=== PATIENT | female | born 1960 | race Two or more races ===

== ENCOUNTER → 2020-02-15 10:33 | Outpatient (BNVA) | payer MEDICAID, SELFPAY | PROVIDERS: PCP Internal Medicine; Referring Provider Internal Medicine; Visit Provider Internal Medicine Endocrinology, Diabetes & Metabolism | DX: Z76.89 Persons encountering health services in other specified circumstances (principal) ==

== ENCOUNTER 2020-02-16 10:11 | Outpatient (REF) | payer MEDICAID, SELFPAY ==
[2020-02-16 11:39] LABS: Free T4 (Free Thyroxine) 0.92 ng/dL (0.71-1.85); Thyroid Stimulating Hormone 1.07 uIU/mL (0.32-4.0)
[2020-02-18 19:09] LABS: Triiodothyronine T3 Total 118 ng/dL (76-181)
== END 2020-02-16 10:12 | disposition home or self-care (01) ==
LOC: HO.LAB 10:11
PROVIDERS: PCP Internal Medicine; Visit Provider Internal Medicine Endocrinology, Diabetes & Metabolism
DX: E55.9 Vitamin D deficiency, unspecified (principal); E05.00 Thyrotoxicosis with diffuse goiter without thyrotoxic crisis or storm
CPT/HCPCS: 84439; 84443; 84480

== ENCOUNTER 2020-07-26 08:01 | Outpatient (REF) | payer MEDICAID, SELFPAY ==
[2020-07-26 09:46] LABS: Free T4 (Free Thyroxine) 0.89 ng/dL (0.71-1.85); Thyroid Stimulating Hormone 1.86 uIU/mL (0.32-4.0)
[2020-07-27 07:16] LABS: Triiodothyronine T3 Total 150 ng/dL (76-181)
== END 2020-07-26 08:02 | disposition home or self-care (01) ==
LOC: HO.LAB 08:01
PROVIDERS: PCP Internal Medicine; Visit Provider Internal Medicine Endocrinology, Diabetes & Metabolism
DX: E05.00 Thyrotoxicosis with diffuse goiter without thyrotoxic crisis or storm (principal); E55.9 Vitamin D deficiency, unspecified
CPT/HCPCS: 36415; 84439; 84443; 84480

== ENCOUNTER → 2020-08-15 14:05 | Outpatient (BNVA) | payer MEDICAID, SELFPAY | PROVIDERS: PCP Internal Medicine; Visit Provider Internal Medicine Endocrinology, Diabetes & Metabolism | DX: E05.00 Thyrotoxicosis with diffuse goiter without thyrotoxic crisis or storm (principal); E55.9 Vitamin D deficiency, unspecified | CPT/HCPCS: 99212 ==

== ENCOUNTER → 2020-08-19 08:33 | Outpatient (REF) | payer MEDICAID, SELFPAY | LOC: HO.SL 08:33 | PROVIDERS: PCP Internal Medicine; Visit Provider Internal Medicine | DX: G47.33 Obstructive sleep apnea (adult) (pediatric) (principal); R06.83 Snoring | CPT/HCPCS: 95806 ==

== ENCOUNTER 2020-08-20 13:48 | Outpatient (REF) | payer MEDICAID, SELFPAY ==
--- NOTE | ~2020-08-20 | MM_ITS ---
EXAMINATION: MM SCREENING DIGITAL BREAST TOMOSYNTHESIS, BILATERAL CLINICAL INFORMATION: Screening. Asymptomatic. The lifetime risk of breast cancer based on the Tyrer-Cuzick Model is 8.9%. COMPARISON: Mammography: April 30, 2019 and studies dating back to June 02, 2011 TECHNIQUE: Digital breast tomosynthesis is performed in both the craniocaudal and mediolateral oblique views along with computer-aided detection (CAD). Synthesized 2D images are generated from the tomosynthesis. FINDINGS: The breasts are almost entirely fatty (ACR BI-RADS breast composition Category a). There are no significant masses, abnormal calcifications, or other abnormalities. MM/MM tomosynthesis screening BI IMPRESSION: There are no significant changes from prior study. ASSESSMENT: BI-RADS 1: Negative RECOMMENDATION: Routine annual mammography screening. This patient's information was entered into a reminder system with a target due date for their next mammogram.
== END 2020-08-20 13:49 | disposition home or self-care (01) ==
LOC: HO.MAMMO 13:48
PROVIDERS: PCP Internal Medicine; Visit Provider Internal Medicine
DX: Z12.31 Encounter for screening mammogram for malignant neoplasm of breast (principal)
CPT/HCPCS: 77063; 77067

== ENCOUNTER 2020-11-28 03:26 | Emergency (ER) | payer MEDICAID, SELFPAY ==
--- NOTE | ~2020-11-28 | XR_ITS ---
EXAMINATION: XR HIP, LEFT WITH PELVIS CLINICAL INFORMATION: Pain, question atraumatic COMPARISON: None TECHNIQUE: Two views of the left hip. AP pelvis. FINDINGS: Alignment across the hips is anatomic, and joint spaces are maintained. No acute fracture is seen. Sacroiliac joints and pubic symphysis are intact. XR/XR hip LT w PEL1V IMPRESSION: No acute findings.
[2020-11-28 03:39] VITALS: BP 129/68; BP 134/86; PULSE 119; PULSE 132; RESP 20; TEMP 37.3; O2SAT 95; O2SAT 97; BMI 28.9
[2020-11-28 04:02] LABS: Glucose Urine UA NEG (NEG); Leukocyte Esterase Urine NEG (NEG); Nitrite Urine NEG (NEG); Specific Gravity - Urine <= 1.005 (1.005-1.025); Urine Blood NEG (NEG); Urine Ketones NEG (NEG); Urine Protein NEG (NEG-TRACE)
--- NOTE | 2020-11-28 04:02 | ECG_ITS ---
Test Reason : ABD PAIN Blood Pressure : / mmHG Vent. Rate : 115 BPM Atrial Rate : 115 BPM P-R Int : 130 ms QRS Dur : 064 ms QT Int : 336 ms P-R-T Axes : 048 009 007 degrees QTc Int : 464 ms Sinus tachycardia Otherwise normal ECG When compared with ECG of 27-JUN-2011 23:40, No significant change was found Referred By: Kristen Robison Electronically Signed By:ALAINA ISAACS
[2020-11-28 04:05] LABS: Appearance Urine CLEAR; Color Urine STRAW
--- NOTE | 2020-11-28 04:25 | ED_ITS ---
HPI - General Adult General Chief complaint: General Medical Stated complaint: L LEG PAIN W/DIFF AMB,NO INJURY SINCE YESTERDAY Time Seen by Provider: 11/28/20 03:36 Source: patient and school manager Mode of arrival: EMS History of Present Illness HPI narrative: 60-year-old female with multiple medical comorbidities who presents via EMS for significant pain at her inner left thigh that is atraumatic. Patient otherwise denies any fever but states she is having some chills and otherwise denies any shortness of breath, chest pain/palpitations, GI or symptoms. She states that she began experiencing pain at approximately 5:00 p.m. last night and initially tried to use a cane to assist her in walking but then the pain became progressively worse. She has received both COVID-19 vaccines. Additional information patient states that she ?over did it yesterday? with housework. Related Data Home Medications Medication Instructions Recorded Confirmed adalimumab 40 mg/0.8 mL 40 mg SUBCUT Q2W 02/15/20 08/15/20 subcutaneous syringe kit (Humira) cetirizine 10 mg capsule (All Day 10 mg PO DAILY 02/15/20 08/15/20 Allergy (cetirizine)) clonazepam 0.5 mg tablet 0.5 mg PO DAILY 02/15/20 08/15/20 docusate sodium 100 mg capsule 100 mg PO DAILY 02/15/20 08/15/20 (Colace) fluticasone prop.50 mcg spray INTRANASAL DAILY ea 02/15/20 08/15/20 spray,suspen-sod.chloride 0.9% nasal spray kit metformin 500 mg tablet 500 mg PO DAILY 02/15/20 08/15/20 methotrexate sodium 2.5 mg tablet 2.5 mg PO QWEEK 02/15/20 08/15/20 metoprolol tartrate 25 mg tablet 12.5 mg PO BID 02/15/20 08/15/20 sertraline 100 mg tablet 100 mg PO DAILY 02/15/20 08/15/20 clindamycin HCl 300 mg capsule 300 mg PO BID 08/15/20 08/15/20 Previous Rx's Medication Instructions Recorded cholecalciferol (vitamin D3) 25 25 mcg PO DAILY 30 Days #30 cap 08/15/20 mcg (1,000 unit) capsule methimazole 5 mg tablet 2.5 mg PO .3 times a week 30 Days 08/15/20 #14 tab Allergies Allergy/AdvReac Type Severity Reaction Status Date / Time No Known Allergies Allergy Unverified 12/20/19 17:35 Review of Systems Review of Systems: Pertinent positives and negatives as stated in HPI 10 point review of systems is otherwise negative. FORMERLY [facility] Past Medical History Source: nursing notes reviewed Medical History Anxiety Graves disease Rheumatoid arthritis Vitamin D deficiency Surgical History No pertinent past surgical history Family History Family History Father Diabetes Hypertension Heart disease Hyperlipidemia Thyroid disease Mother Heart disease Hypertension Thyroid disease Diabetes Social History Social History Alcohol intake: unknown Patient Tobacco Use Status: Never used Tobacco Use of substances other than those prescribed or required for medical reasons: No Advance Directives: No Advance Directives Information Provided: Yes Patient : No Physical Exam Vital Signs: Vital Signs: Last Vital Signs Temp 99.1 F 11/28/20 03:39 Pulse 108 H 11/28/20 04:38 Resp 18 11/28/20 04:38 BP 133/76 11/28/20 04:38 Pulse Ox 97 11/28/20 04:38 Body Mass Index 28.9 VITAL SIGNS: Reviewed. GENERAL: Well developed, well nourished, in no acute distress. HEAD: Normocephalic/atraumatic EYES: PERRLA, EOMI EARS: Ext canals without abnormality, TMs non-bulging and non-erythematous NOSE: Nares patent bilateral OROPHARYNX: no oral lesions noted, posterior pharynx clear NECK: Supple, no adenopathy LUNGS: Normal breath sounds. No adventitious sounds or accessory muscle use. SpO2<95> CARDIOVASCULAR: Regular rate and rhythm without noted murmurs, no JVD or lower extremity edema. ABDOMEN: Soft, non-tender, non-distended with bowel sounds. LEFT LOWER EXTREMITY: No deformity noted, no erythema/induration, full range of motion at ankle, foot is warm, palpable DP/PT with good capillary refill and sensation is intact. However on attempts to range of motion the knee which then moves the hip patient experiences significant pain SKIN: Inspection of the skin reveals no rashes NEUROLOGIC: Alert and oriented x 4. Strength and sensation to light touch were grossly intact x 4. Course Course Course Narrative: 60-year-old female with history and clinical presentation concerning for possible fracture. Basic labs, imaging, urinalysis. Review of all investigations without acute findings and on re-evaluation patient has some improvement with ambulation and ambulates with a cane at baseline. With the dial refinisher and nursing staff patient was ambulated and she states feeling somewhat better and endorses that she will take it easy for the day. Medical Decision Making Lab Data Result diagrams: 11/28/20 04:33 11/28/20 04:33 Labs: Lab Results 11/28/20 11/28/20 11/28/20 Range/Units 03:55 04:33 04:33 WBC 9.6 (4.8-10.8) X10*3/uL RBC 4.56 (4.20-5.50) X10*6/uL Hgb 10.9 L (12.0-16.0) g/dl Hct 34.8 L (37-47) % MCV 76.3 L (80-98) fL MCH 23.9 L (27.0-33.0) pg MCHC 31.3 (31.0-35.0) g/dl RDW 16.2 H (11.0-16.0) % Plt Count 214 (160-400) X10*3/uL MPV 9.2 L (9.4-12.3) fL Immature Gran % (Auto) 0.3 (0.0-0.4) % Neut % (Auto) 75.5 H (45-73) % Lymph % (Auto) 13.9 L (20-40) % [place] % (Auto) 10.2 (2-11) % Eos % (Auto) 0.0 (0-4) % Baso % (Auto) 0.1 (0-2) % Lymph # (Auto) 1.3 (1.2-4.9) X10*3/uL [place] # (Auto) 1.0 (0.1-1.2) X10*3/uL Eos # (Auto) 0.0 (0.0-0.4) X10*3/uL Baso # (Auto) 0.0 (0.0-0.2) X10*3/uL Abs Immat Gran (auto) 0.03 (0.00-0.03) X10*3/uL Absolute Neuts (auto) 7.2 (2.0-8.3) X10*3/uL Absolute Nucleated RBC 0.000 (0.0-0.012) X10*3/uL Nucleated RBC % (auto) 0.0 (0.0-0.2) /100WBC Sodium 136 (135-145) mmol/L Potassium 4.2 (3.3-5.1) mmol/L Chloride 102 (96-108) mmol/L Carbon Dioxide 25 (22-29) mmol/L Anion Gap 13 (12-20) BUN 19 H (9-16) mg/dL Creatinine 0.85 (0.5-1.4) mg/dL Estim Creat Clear Calc 45.8 Estimated GFR > 60 Random Glucose 148 H (60-115) mg/dL Calcium 8.8 (8.4-10.2) mg/dL Total Bilirubin 1.0 (0.0-1.0) mg/dL AST 26 (5-31) U/L ALT 25 (0-31) U/L Alkaline Phosphatase 59 (39-117) U/L Total Protein 8.1 H (6.5-8.0) g/dL Albumin 4.0 (3.5-5.0) g/dL Urine Color STRAW Urine Appearance CLEAR Urine pH 6.0 (5.0-8.0) Ur Specific [place] <= 1.005 (1.005-1.025) Urine Protein NEG (NEG-TRACE) MG/DL Urine Glucose (UA) NEG (NEG) MG/DL Urine Ketones NEG (NEG) MG/DL Urine Blood NEG (NEG) Urine Nitrite NEG (NEG) Ur Leukocyte Esterase NEG (NEG) ECG Data Attestation: I personally reviewed and interpreted this ECG as follows: Prior ECG tracings: not available for review Interpretation: Sinus tachycardia, HR -115, no STEMI, RI/QRS/QTC are within normal limits. Discharge Plan Discharge Clinical Impression: Arthritis Patient Disposition: Home, Self-Care Instructions: Musculoskeletal Pain (ED), Arthritis (ED) Additional Instructions: 1. Reanude todos los medicamentos caseros seg?n lo prescrito. 2. Recomiende que froilan un seguimiento con vyas proveedor de atenci?n primaria llamando al consultorio por la ma?meaghan para shelby reevaluaci?n y un tratamiento ambulatorio adicional. Regrese a la david de emergencias si [place] s?ntomas empeoran de manera aguda. Prescriptions: No Action fluticasone prp-sod.chl,bicarb 50 mcg- 0.9 % kit,spray suspension and spray intranasal DAILY RF: 0 clonazepam 0.5 mg tablet 0.5 mg PO DAILY RF: 0 metoprolol tartrate 25 mg tablet 12.5 mg PO BID RF: 0 All Day Allergy (cetirizine) 10 mg capsule 10 mg PO DAILY RF: 0 metformin 500 mg tablet 500 mg PO DAILY RF: 0 sertraline 100 mg tablet 100 mg PO DAILY RF: 0 docusate sodium [Colace] 100 mg capsule 100 mg PO DAILY RF: 0 methotrexate sodium 2.5 mg tablet 2.5 mg PO QWEEK RF: 0 Humira 40 mg/0.8 mL syringe kit 40 mg subcut Q2W RF: 0 clindamycin HCl 300 mg capsule 300 mg PO BID RF: 0 cholecalciferol (vitamin D3) 25 mcg (1,000 unit) capsule 25 mcg PO DAILY 30 Days Qty: 30 RF: 6 methimazole 5 mg tablet 2.5 mg PO .3 times a week 30 Days Qty: 14 RF: 6 Referrals: [facility] [Primary Care Provider] - 2 days Print Language: Latvian
[2020-11-28 04:38] VITALS: BP 133/76; PULSE 108; RESP 18; O2SAT 97
[2020-11-28 04:38] LABS: MANUAL DIFF FLAG NO
[2020-11-28 04:39] LABS: Basophils Percent Auto 0.1 % (0-2); Hematocrit 34.8 % (37-47); Hemoglobin 10.9 g/dl (12.0-16.0); Imm Gran Abs Auto 0.03 X10*3/uL (0.00-0.03); Imm Gran Pct Auto 0.3 % (0.0-0.4); Lymphocytes Absolute Auto 1.3 X10*3/uL (1.2-4.9); Lymphocytes Percent Auto 13.9 % (20-40); Mean Corpuscular HGB Conc 31.3 g/dl (31.0-35.0); Mean Corpuscular Hemoglobin 23.9 pg (27.0-33.0); Mean Corpuscular Volume 76.3 fL (80-98); Mean Platelet Volume 9.2 fL (9.4-12.3); Monocytes Percent Auto 10.2 % (2-11); Neutrophils Absolute Auto 7.2 X10*3/uL (2.0-8.3); Neutrophils Percent Auto 75.5 % (45-73); Platelet Count 214 X10*3/uL (160-400); Red Blood Count 4.56 X10*6/uL (4.20-5.50); Red Cell Distribution Width 16.2 % (11.0-16.0); White Blood Count 9.6 X10*3/uL (4.8-10.8)
[2020-11-28 05:15] LABS: Alanine Aminotransferase 25 U/L (0-31); Alkaline Phosphatase 59 U/L (39-117); Anion Gap 13 (12-20); Aspartate Amino Transferase 26 U/L (5-31); Blood Urea Nitrogen 19 mg/dL (9-16); Calcium 8.8 mg/dL (8.4-10.2); Carbon Dioxide 25 mmol/L (22-29); Chloride 102 mmol/L (96-108); Creatinine Clr Calc Pharmacy 45.8; Estimated Glomerular Filt Rate > 60; Glucose Random 148 mg/dL (60-115); Potassium 4.2 mmol/L (3.3-5.1); Sodium 136 mmol/L (135-145); Total Protein 8.1 g/dL (6.5-8.0)
--- NOTE | 2020-11-28 05:52 | PC.NURSE ---
Pt taken to xray. Gave update to .
== END 2020-11-28 07:42 | disposition home or self-care (01) ==
PROVIDERS: Emergency Provider Student in an Organized Health Care Education/Training Program
DX: M16.12 Unilateral primary osteoarthritis, left hip (principal); M79.605 Pain in left leg; R00.0 Tachycardia, unspecified
CPT/HCPCS: 36415; 73502; 80053; 81003; 85025; 93005; 93971; 99283; 99284

== ENCOUNTER 2020-11-28 14:41 | Outpatient (REF) | payer MEDICAID, SELFPAY ==
--- NOTE | ~2020-11-28 | US_ITS ---
EXAMINATION: US VENOUS ULTRASOUND WITH DOPPLER LOWER EXTREMITY, LEFT CLINICAL INFORMATION: Edema and left lower extremity. Assess for occult DVT. COMPARISON: None TECHNIQUE: Ultrasound of the deep veins is performed from the hip to the calf with compression sonography and color and pulse Doppler assessment. Spectral analysis with color-flow imaging is performed. FINDINGS: There is normal venous compression and respiratory variation and augmented flow. The visualized common femoral vein, superficial femoral vein, profunda femoral vein, popliteal vein, and the trifurcation region shows no evidence of deep venous thrombosis. No visible popliteal fossa cyst. US/US venous duplex LE LT IMPRESSION: No DVT demonstrated in the left lower extremity.
== END 2020-11-28 14:42 | disposition home or self-care (01) ==
LOC: HO.US 14:41
PROVIDERS: PCP Internal Medicine; Visit Provider Internal Medicine
DX: R10.32 Left lower quadrant pain (principal); R60.0 Localized edema
CPT/HCPCS: 93971

== ENCOUNTER → 2021-01-11 20:04 | Outpatient (REF) | payer MEDICAID, SELFPAY | LOC: HO.SL 20:04 | PROVIDERS: PCP Internal Medicine; Visit Provider Internal Medicine | DX: G47.33 Obstructive sleep apnea (adult) (pediatric) (principal) | CPT/HCPCS: 95811 ==

== ENCOUNTER 2021-01-26 14:36 | Outpatient (REF) | payer MEDICAID, SELFPAY ==
--- NOTE | 2021-01-26 16:36 | MHC.AU.ANH ---
Adult Audiological Evaluation Date of Visit: 01/26/21 Building Service Worker Used: Palauan- In Person Reason for Appointment: Audiological evaluation due to history of hearing loss and hearing aid use. Patient reports she was previously a patient of [facility]. She notes a longstanding history of hearing loss, with her right ear hearing worse than the left. She uses Oticon BTE hearing aids in both ears, and notes that she hasn't been hearing as well with them lately. Previous Hearing Test Results: Previously tested at [facility]. Records not available for review today. Ear History: Recent Ear Infections: Often gets infections when she is congested Bothersome Tinnitus/Ringing/Noises in Ears: Both Ears Medical History: Medical History: Rheumatoid arthritis, cutaneous lupus, Graves' disease Medication List: Humira 40 mg, Metoprolol Tartrate 25 mg, Cetirizine HCl 10 mg, Methimazole 5 mg, Methotrexate 2.5 mg, Vitamin D3 25 mg, Folic acid 1 mg, Fluticasone Prop 50 mg, Hydroxyzine HCl 10 mg, Citalopram 10 mg, Freestyle 28 g, Meloxicam 7.5 mg, Caltrate 600 + D3 Hearing Instrument History- Right Ear: Big Data Solutions Architect: Oticon Model: Bela 2 Pro PP Serial Number: [id number] Battery Size: 13 Repair Warranty: 05/02/2018 Loss and Damage Warranty: 05/02/2017 Dispensed By: [facility] Date of Fitting: Per Oticon: Purchased 04/02/2016 Hearing Instrument History- Left Ear: Big Data Solutions Architect: Oticon Model: Bela 2 Pro Serial Number: [id number] Battery Size: 13 Warranty: 05/02/2018 Loss and Damage Warranty: 05/02/2017 Dispensed By: [facility] Date of Fitting: Per Oticon: Purchased 04/02/2016 Otoscopy: Right Ear: Significant scarring on the tympanic membrane. Clear canal. Left Ear: Significant scarring on the tympanic membrane. Clear canal. Tympanometry: Tympanometry performed due to: To assess integrity of the middle ear system Right Ear: Non-compliant Middle Ear System (Type B) Left Ear: Non-compliant Middle Ear System (Type B) Hearing Evaluation: Transducer(s) Used: Insert Earphones, Bone Conduction Method: Conventional Audiometry Stimuli Used: Pure Tones Right Ear: Description of Hearing: Severe mixed hearing loss from 250-1000 Hz, severe sensorineural hearing loss at 2000 Hz, and a severe mixed hearing loss from 9548-3639 Hz. Left Ear: Description of Hearing: Mild sensorineural hearing loss from 250-4000 Hz and a moderate hearing loss at 8000 Hz. Speech Recognition Threshold (SRT): Method Used: Recorded Lists Stimuli Used: [place]an Trisyllable Words Right Ear: 90 dBHL Left Ear: 40 dBHL Word Discrimination: Method: Recorded Lists Word Lists Used: Lista Bisil?bica (Palauan) Right Ear: 64% at 100 dBHL (masked) Left Ear: 100% at 80 dBHL Recommendations: Audiological re-evaluation in one year. Hearing aid maintenance performed today. Hearing aid(s) reprogrammed with updated test results. Patient will be due for new hearing aids in early 2021. Recommend she return in May 2021 for a hearing aid consultation. Diagnosis: Primary Diagnosis: H90.3 Bilateral Sensorineural Hearing Loss Secondary Diagnosis: H69.93 Unspecified Eustachian Tube Dysfunction, Bilateral Services Performed: Comprehensive Audiological Evaluation (CPT 30788) Tympanometry (CPT 46940) Signature: Provider: Erasmo Jones, CCC-A
--- NOTE | 2021-01-26 16:41 | MHC.AU.HFU ---
Hearing Instrument Follow-Up- Binaural Date of Visit: 01/26/21 Chemist Internship Used: Slovenian- In Person Right Ear: Leader Writer: Oticon Model: Bela 2 Pro PP Serial Number: [id number] Repair Warranty: 05/02/2018 Loss and Damage Warranty: 05/02/2017 Battery Size: 13 Color: Silver El TubinT Type of Mold: Skeleton mold Dispensed By: [facility] Date of Fitting: Per Oticon- Purchased 04/02/2016 Left Ear: Leader Writer: Oticon Model: Bela 2 Pro Serial Number: [id number] Repair Warranty: 05/02/2018 Loss and Damage Warranty: 05/02/2017 Battery Size: 13 Color: Silver El TubinT Type of Mold: Canal lock mold Dispensed By: [facility] Date of Fitting: Per Oticon- Purchased 04/02/2016 Follow-Up Summary: Hearing aid maintenance performed. Cleaned aids and earmolds, vacuumed microphones, replaced tubing. Saved hearing aid settings in SHARLA then reprogrammed to today's audiogram and set to adaptation level 3. She reported improved sound quality. Recommendations: Recommendations: Hearing instrument maintenance in 6 months, or sooner if needed. Please contact our clinic with any questions or concerns. Signature: Provider: Erasmo Jones, CCC-A
--- NOTE | 2021-01-27 11:17 | MHC.AU.MED ---
Medical Clearance for Hearing Instrumentation Date: 01/27/21 Patient Name: Winsome Cobos Date of : 1960 Referring Provider: Myriam Moore MD We have seen your patient on 01/27/21 and have determined that they are a candidate for amplification (See accompanying report). Specifically, they would benefit from: Hearing aid use in both ears There is a statute that addresses Medical Evaluation Requirements prior to fitting a patient with a hearing aid. According to [place] statute 265 CMR:6.03(1), (a) General. Except as provided in 265 CMR 6.03(1)(b), a shearing machine operator shall not sell a hearing aid unless the prospective user has presented to the shearing machine operator a written statement signed by a licensed physician that states that the patient's hearing loss has been medically evaluated and the patient may be considered a candidate for a hearing aid. The medical evaluation must have taken place within the preceding six months. Please note: Due to the [place] Statute referenced above, we cannot accept a signature other than that of a licensed physician. FIELD ENGINEER and PA signatures cannot be accepted. I am in agreement with the above recommendation. There is no medical contraindication for hearing instrumentation. Physician Signature Date Physician Name (Printed)
== END 2021-01-26 14:37 | disposition home or self-care (01) ==
LOC: HO.SH 14:36
PROVIDERS: Visit Provider Internal Medicine
DX: Z46.1 Encounter for fitting and adjustment of hearing aid (principal); H90.3 Sensorineural hearing loss, bilateral; H69.93 Unspecified Eustachian tube disorder, bilateral
CPT/HCPCS: 92557; 92567; 92593; V5011

== ENCOUNTER 2021-02-18 13:45 | Outpatient (REF) | payer MEDICAID, SELFPAY ==
[2021-02-18 16:28] LABS: Thyroid Stimulating Hormone 1.14 uIU/mL (0.32-4.0)
[2021-02-18 16:29] LABS: Thyroid Stimulating Hormone 1.14 uIU/mL (0.32-4.0); Vitamin D 25-OH Total 35.6 ng/mL (>30)
[2021-02-20 17:47] LABS: Thyroglobulin Antibodies <1 IU/mL (< or = 1)
[2021-02-20 20:10] LABS: Triiodothyronine T3 Total 121 ng/dL (76-181)
[2021-02-20 21:26] LABS: Thyroid Peroxidase Antibodies 1 IU/mL (<9)
[2021-02-23 21:37] LABS: Thyrotropin Receptor Antibody 1.52 IU/L (<=2.00)
[2021-02-25 15:41] LABS: Thyroid Stimulating Immunoglob <89 % baseline (<140)
== END 2021-02-18 13:46 | disposition home or self-care (01) ==
LOC: HO.LAB 13:45
PROVIDERS: Internal Medicine Endocrinology, Diabetes & Metabolism; PCP Internal Medicine; Visit Provider Internal Medicine
DX: E05.00 Thyrotoxicosis with diffuse goiter without thyrotoxic crisis or storm (principal); E55.9 Vitamin D deficiency, unspecified
CPT/HCPCS: 36415; 82306; 83520; 84439; 84443; 84445; 84480; 86376; 86800; 99212

== ENCOUNTER → 2021-05-13 09:16 | Outpatient (BNVA) | payer MEDICAID, SELFPAY | PROVIDERS: PCP Internal Medicine; Visit Provider Internal Medicine ==

== ENCOUNTER 2021-07-06 14:15 | Outpatient (REF) | payer MEDICAID, SELFPAY ==
--- NOTE | ~2021-07-06 | US_ITS ---
EXAMINATION: US THYROID CLINICAL INFORMATION: Thyrotoxicosis with diffuse goiter COMPARISON: None TECHNIQUE: Linear transducer grayscale and color Doppler examination with attention to the region of the thyroid. FINDINGS: SIZE: Measurements of the thyroid lobes and nodules are given in sagittal, anteroposterior and transverse dimensions respectively. Right Thyroid Lobe: 3.4 x 1.2 x 1.0 cm, volume 1.92 mL. Parenchyma: The gland echotexture is homogeneous. Thyroid vascularity is normal. Left Thyroid Lobe: 2.7 x 1.2 x 1.2 cm, volume 2.0 mL. Parenchyma: The gland echotexture is homogeneous. Thyroid vascularity is normal. Isthmus: 0.3 cm in maximum AP dimension. Estimated total number of nodules greater than or equal to 1 cm: 0. Cloth Carrier nodules are described as follows: 1. Location: Isthmus. Size: 0.4 x 0.2 x 0.3 cm, volume mL. Nodule characteristics: Composition: Solid (2). Echogenicity: Hypoechoic (2). Shape: Not taller than wide (0). Margins: Ill-defined (0). Echogenic Foci: None (0). ACR TI-RADS total points: 4 ACR TI-RADS category: 4 2. Location: Right thyroid upper. Size: 0.3 x 0.3 x 0.3 cm, volume mL. Nodule characteristics: Composition: Solid (2). Echogenicity: Hypoechoic (2). Shape: Not taller than wide (0). Margins: Ill-defined (0). Echogenic Foci: None (0). ACR TI-RADS total points: 4 ACR TI-RADS category: 4 3. Location: Right thyroid lower pole. Size: 0.6 x 0.3 x 0.5 cm, volume mL. Nodule characteristics: Composition: Mixed cystic and solid (1). Echogenicity: Hypoechoic (2). Shape: Not taller than wide (0). Margins: Ill-defined (0). Echogenic Foci: None (0). ACR TI-RADS total points: 3 ACR TI-RADS category: 3 4. Location: Right thyroid lower pole. Size: 0.5 x 0.3 x 0.4 cm, volume mL. Nodule characteristics: Composition: Mixed cystic and solid (1). Echogenicity: Hypoechoic (2). Shape: Not taller than wide (0). Margins: Ill-defined (0). Echogenic Foci: None (0). ACR TI-RADS total points: 3 ACR TI-RADS category: 3 5. Location: Left thyroid upper. Size: 0.6 x 0.3 x 0.5 cm, volume mL. Nodule characteristics: Composition: Solid (2). Echogenicity: Hypoechoic (2). Shape: Not taller than wide (0). Margins: Ill-defined (0). Echogenic Foci: None (0). ACR TI-RADS total points: 4 ACR TI-RADS category: 4 NODES: No lymphadenopathy is seen in the tissue surrounding the thyroid gland. US/US thyroid IMPRESSION: Small thyroid gland. Small bilateral thyroid nodules. ACR TI-RADS RECOMMENDATION REFERENCE: Ultrasound-guided fine-needle aspiration, followup ultrasound, no further follow up. * TR1 (0 point) and TR 2 (2 points): No FNA or follow up * TR3 (3 points): FNA if more than or equal to 2.5 cm in maximum dimension, followup ultrasound in 1, 3 and 5 years if 1.5 to 2.4 cm in maximum dimension. * TR4 (4-6 points): FNA if more than or equal to 1.5 cm in maximum dimension, followup ultrasound in 1, 2, 3 and 5 years if 1 to 1.4 cm in maximum dimension. * TR5 (more than or equal to 7 points): FNA if more than or equal to 1 cm in maximum dimension, followup ultrasound every year for 5 years if 0.5 to 0.9 cm in maximum dimension. * TR3, TR4 or TR5 nodules that are below the size threshold for follow up receive no follow up.
== END 2021-07-06 14:16 | disposition home or self-care (01) ==
LOC: HO.US 14:15
PROVIDERS: PCP Internal Medicine; Visit Provider Internal Medicine
DX: E05.00 Thyrotoxicosis with diffuse goiter without thyrotoxic crisis or storm (principal)
CPT/HCPCS: 76536

== ENCOUNTER 2021-08-11 08:35 | Outpatient (REF) | payer MEDICAID, SELFPAY ==
[2021-08-11 10:34] LABS: Free T4 (Free Thyroxine) 0.92 ng/dL (0.71-1.85); Thyroid Stimulating Hormone 2.79 uIU/mL (0.32-4.0)
[2021-08-13 05:37] LABS: Triiodothyronine T3 Total 148 ng/dL (76-181)
== END 2021-08-11 08:36 | disposition home or self-care (01) ==
LOC: HO.LAB 08:35
PROVIDERS: PCP Internal Medicine; Visit Provider Internal Medicine
DX: E05.00 Thyrotoxicosis with diffuse goiter without thyrotoxic crisis or storm (principal)
CPT/HCPCS: 36415; 84439; 84443; 84480

== ENCOUNTER 2021-08-21 14:45 | Outpatient (REF) | payer MEDICAID, SELFPAY ==
--- NOTE | ~2021-08-21 | MM_ITS ---
EXAMINATION: MM SCREENING DIGITAL BREAST TOMOSYNTHESIS, BILATERAL CLINICAL INFORMATION: Screening. Asymptomatic. The lifetime risk of breast cancer based on the Tyrer-Cuzick Model is 8%. COMPARISON: Mammography: 08/20/2020, 04/30/2019, 03/15/2018 TECHNIQUE: Digital breast tomosynthesis is performed in both the craniocaudal and mediolateral oblique views along with computer-aided detection (CAD). Synthesized 2D images are generated from the tomosynthesis. FINDINGS: There are scattered areas of fibroglandular density (ACR BI-RADS breast composition Category b). Breast tissue composition borders on predominantly fatty. Background stromal and fibroglandular densities are similar to prior exams. There is no significant mass or architectural abnormality or developing density. No abnormal calcifications. The axilla and skin contours are unremarkable. MM/MM tomosynthesis screening BI IMPRESSION: No mammographic evidence of malignancy. ASSESSMENT: BI-RADS 1: Negative RECOMMENDATION: Routine annual mammography screening. This patient's information was entered into a reminder system with a target due date for their next mammogram.
== END 2021-08-21 14:46 | disposition home or self-care (01) ==
LOC: HO.MAMMO 14:45
PROVIDERS: PCP Internal Medicine; Visit Provider Internal Medicine
DX: Z12.31 Encounter for screening mammogram for malignant neoplasm of breast (principal)
CPT/HCPCS: 77063; 77067

== ENCOUNTER → 2021-08-24 09:32 | Outpatient (BNVA) | payer MEDICAID, SELFPAY | PROVIDERS: PCP Internal Medicine; Visit Provider Internal Medicine | DX: Z13.89 Encounter for screening for other disorder (principal) ==

== ENCOUNTER 2021-10-15 09:02 | Outpatient (REF) | payer MEDICAID, SELFPAY ==
[2021-10-15 11:16] LABS: Free T4 (Free Thyroxine) 0.98 ng/dL (0.71-1.85); Thyroid Stimulating Hormone 2.18 uIU/mL (0.32-4.0)
[2021-10-17 08:56] LABS: Triiodothyronine T3 Total 123 ng/dL (76-181)
== END 2021-10-15 09:03 | disposition home or self-care (01) ==
LOC: HO.LAB 09:02
PROVIDERS: PCP Internal Medicine; Visit Provider Internal Medicine
DX: E05.00 Thyrotoxicosis with diffuse goiter without thyrotoxic crisis or storm (principal)
CPT/HCPCS: 36415; 84439; 84443; 84480

== ENCOUNTER → 2021-10-19 13:58 | Outpatient (BNVA) | payer MEDICAID, SELFPAY | PROVIDERS: PCP Internal Medicine; Visit Provider Internal Medicine | DX: E05.00 Thyrotoxicosis with diffuse goiter without thyrotoxic crisis or storm (principal); N95.0 Postmenopausal bleeding | CPT/HCPCS: 99212 ==

== ENCOUNTER 2021-11-10 11:41 | Outpatient (REF) | payer MEDICAID, SELFPAY ==
[2021-11-17 06:51] LABS: HPV mRNA E6/E7 rflx Not Detected (Not Detected)
== END 2021-11-10 11:42 | disposition home or self-care (01) ==
LOC: HO.LAB 11:41
PROVIDERS: PCP Internal Medicine; Visit Provider Obstetrics & Gynecology
DX: Z01.411 Encounter for gynecological examination (general) (routine) with abnormal findings (principal); Z11.51 Encounter for screening for human papillomavirus (HPV); N95.0 Postmenopausal bleeding
CPT/HCPCS: 87624; 88142; 99202

== ENCOUNTER 2021-12-28 16:01 | Outpatient (REF) | payer MEDICAID, SELFPAY ==
--- NOTE | ~2021-12-28 | US_ITS ---
EXAMINATION: US PELVIS CLINICAL INFORMATION: Postmenopausal bleeding COMPARISON: Previous CT of the abdomen and pelvis from 2010 TECHNIQUE: Ultrasound of the pelvis is performed using both transabdominal and transvaginal transducers along with Doppler. Transvaginal imaging is performed due to inadequate visualization transabdominally. FINDINGS: The uterus is anteverted and retroflexed and measures 6.7 x 3 x 3.5 cm in dimension. The endometrium is abnormally thickened for a postmenopausal patient measuring 1 cm. No focal uterine lesion is seen. There are nabothian cysts in the cervix. Right ovary measures 2.3 x 1.8 x 1.2 cm. There is a small 0.8 x 0.6 x 0.8 cm right ovarian cyst. The left ovary is normal and measures 2.3 x 1.3 x 1.4 cm. There is no fluid in the pelvis. US/US pelvic and transvaginal IMPRESSION: Abnormally thickened endometrium measuring 1 cm. Small subcentimeter right ovarian cyst.
== END 2021-12-28 16:02 | disposition home or self-care (01) ==
LOC: HO.US 16:01
PROVIDERS: Visit Provider Obstetrics & Gynecology
DX: N95.0 Postmenopausal bleeding (principal)
CPT/HCPCS: 76830; 76856

== ENCOUNTER → 2022-01-12 12:31 | Outpatient (BNVA) | payer MEDICAID, SELFPAY | PROVIDERS: PCP Internal Medicine; Visit Provider Obstetrics & Gynecology | DX: N95.0 Postmenopausal bleeding (principal) | CPT/HCPCS: 99212 ==

== ENCOUNTER 2022-05-03 14:13 | Outpatient (REF) | payer MEDICAID, SELFPAY ==
[2022-05-03 17:16] LABS: Free T4 (Free Thyroxine) 0.89 ng/dL (0.71-1.85); Thyroid Stimulating Hormone 1.23 uIU/mL (0.32-4.0)
[2022-05-05 00:44] LABS: Triiodothyronine T3 Total 112 ng/dL (76-181)
[2022-05-06 15:28] LABS: Thyrotropin Receptor Antibody <1.00 IU/L (<=2.00)
[2022-05-06 16:19] LABS: Thyroid Stimulating Immunoglob <89 % baseline (<140)
== END 2022-05-03 14:14 | disposition home or self-care (01) ==
LOC: HO.LAB 14:13
PROVIDERS: PCP Internal Medicine; Visit Provider Internal Medicine
DX: E05.00 Thyrotoxicosis with diffuse goiter without thyrotoxic crisis or storm (principal)
CPT/HCPCS: 36415; 83520; 84439; 84443; 84445; 84480; 99212

== ENCOUNTER 2022-05-25 14:12 | Outpatient (REF) | payer MEDICAID, SELFPAY ==
--- NOTE | 2022-05-25 16:17 | MHC.AU.MED ---
Medical Clearance for Hearing Instrumentation Date: 05/25/22 Patient Name: Winsome Cobos Date of : 1960 Primary Care Provider: Referring Provider: Myriam Moore MD We have seen your patient on 05/25/22 and have determined that they are a candidate for amplification (See accompanying report). Specifically, they would benefit from: Hearing aid use in both ears There is a statute that addresses Medical Evaluation Requirements prior to fitting a patient with a hearing aid. According to [place] statute 265 CMR:6.03(1), (a) General. Except as provided in 265 CMR 6.03(1)(b), a hearing dog trainer shall not sell a hearing aid unless the prospective user has presented to the hearing dog trainer a written statement signed by a licensed physician that states that the patient's hearing loss has been medically evaluated and the patient may be considered a candidate for a hearing aid. The medical evaluation must have taken place within the preceding six months. Please note: Due to the [place] Statute referenced above, we cannot accept a signature other than that of a licensed physician. TAR HEAT EXCHANGER CLEANER and PA signatures cannot be accepted. I am in agreement with the above recommendation. There is no medical contraindication for hearing instrumentation. Physician Signature Date Physician Name (Printed)
--- NOTE | 2022-05-27 09:02 | MHC.AU.HA1 ---
Hearing Aid Evaluation Date of Visit: 05/25/22 Reliability Technicians Used: [place]- By Phone Historical Information: Description of Hearing: Left - Mild to moderate sensorineural hearing loss Right - Severe to profound mixed hearing loss Current personal amplification information, if applicable: Oticon [place] 2 Pro PP right and Koko Pro BTE left. Dispensed 2016 by [employer] Summary: Winsome's right hearing aid is not working and unable to repair in office. Hearing thresholds have decreased overall for both ears compared to 202 results. She is eligible for new hearing aids and advise new binaural aids to better facilitate communication Hearing Aid Prescription: Based on the individual?s shared listening needs, communication environments, dexterity, desire for connectivity, and personal preferences, the following prescription for amplification has been made: Right ear: Make, Model, Color: Oticon OPN S 2 BTE PP Silver Battery Size: 13 Type of Earmold/Dome/CShell/SlimTip: Microsonic Canal Lock Left ear:Left ear prescription to be same as Right Hearing Aid above: Make, Model, Color: Oticon OPN S 2 BTE PP Silver Battery Size: 13 Type of Earmold/Dome/CShell/SlimTip: Microsonic Canal lock Plan of Care: Patient wishes to purchase hearing aids as prescribed Action Taken/Action Needed: Earmold Impressions Taken Medical Clearance to be requested from PCP/ENT Hearing Instrument Fitting to be scheduled when materials arrive Primary Diagnosis: H90.A31 Mixed HL, Unilateral Right Ear, W/Restricted Contralateral Secondary Diagnosis: H69.93 Unspecified Eustachian Tube Dysfunction, Bilateral Signature:Provider: Charu Palomo, [facility]
== END 2022-05-25 14:13 | disposition home or self-care (01) ==
LOC: HO.SH 14:12
PROVIDERS: Visit Provider Internal Medicine
DX: H90.A31 Mixed conductive and sensorineural hearing loss, unilateral, right ear with restricted hearing on the contralateral side (principal); H69.93 Unspecified Eustachian tube disorder, bilateral
CPT/HCPCS: 92557; 92567; 92591; V5275

== ENCOUNTER 2022-10-01 11:01 | Outpatient (REF) | payer MEDICAID, SELFPAY ==
--- NOTE | 2022-10-01 12:20 | MHC.AU.HA2 ---
Hearing Instrument Fitting- Adult- Binaural Date of Visit: 10/01/22 Hearing Instruments Dispensed: Right Ear: Make, Model, Color, Serial Number: Otaugusto Narvaez 2 SP NEIDA Lassiter SN: [id number] Television Operator Repair Warranty: 07/11/2025 Television Operator Loss and Damage Warranty: 07/11/2025 [facility] Service Plan: 10/02/2023 Battery Size: 13 Earmold/Dome/CShell/SlimTip: Microsonic Medi-Pamela Plus Canal Lock Left Ear: Make, Model, Color, Serial Number: Lexus Narvaez 2 SP KECIAE Silver SN: [id number] Television Operator Repair Warranty: 07/11/2025 Television Operator Loss and Damage Warranty: 07/11/2025 [facility] Service Plan: 10/01/2022 Battery Size: 13 Earmold/Dome/CShell/SlimTip: Microsonic Medi-Pamela Plus Canal Lock Summary of Fitting: Performed feedback analyzer and real ear measures. Comfortable at real ear settings. Reviewed care and use. As a long-time hearing aid user, Winsome was familiar with most of the care and maintenance of the new hearing aids including changing the battery and insertion/removal. Did not pair to cell phone or discuss bluetooth capabilities at this time - will do at follow up if Winsome is interested. Recommendations: A hearing instrument follow-up was scheduled. Diagnosis Code(s): Primary Diagnosis: H90.A22 SNHL, Unilatearl, Left Ear, W/Restricted Contralateral Hearing Secondary Diagnosis: H90.A31 Mixed HL, Unilateral Right Ear, W/Restricted Contralateral Signature: Provider: Charu Figueroa, [facility]
== END 2022-10-01 11:02 | disposition home or self-care (01) ==
LOC: HO.HAP 11:01
PROVIDERS: Visit Provider Internal Medicine
DX: Z46.1 Encounter for fitting and adjustment of hearing aid (principal); H90.A22 Sensorineural hearing loss, unilateral, left ear, with restricted hearing on the contralateral side; H90.A31 Mixed conductive and sensorineural hearing loss, unilateral, right ear with restricted hearing on the contralateral side
CPT/HCPCS: V5011; V5020; V5160; V5261; V5264

== ENCOUNTER 2022-10-19 15:18 | Outpatient (REF) | payer MEDICAID, SELFPAY ==
--- NOTE | 2022-10-20 08:02 | MHC.AU.HA3 ---
Hearing Instrument Follow-Up- Binaural Date of Visit: 10/19/22 Right Ear: David, Model, Color, Serial Number: Lexus Xcjules 2 SP NEIDA Lassiter SN: [id number] Group Marketing Vp Repair Warranty: 07/11/2025 Group Marketing Vp Loss and Damage Warranty: 07/11/2025 [facility] Service Plan: 10/02/2023 Battery Size: 13 Earmold/Dome/CShell/SlimTip:Microsonic Medi-Pamela Plus Canal Lock Dispensed By: [facility] Date of Fittin10/01/2022 Left Ear: David, Model, Color, Serial Number: Lexus Xceed 2 SP KECIAE Silver SN: [id number] Group Marketing Vp Repair Warranty: 07/11/2025 Group Marketing Vp Loss and Damage Warranty: 07/11/2025 [facility] Service Plan: 10/01/2022 Battery Size: 13 Earmold/Dome/CShell/SlimTip: Microsonic Medi-Pamela Plus Canal Lock Dispensed By: [facility] Date of Fittin10/01/2022 Follow-Up Summary: Winsome returned for follow up after her hearing aid fitting. Overall, Winsome reported the hearing aids have been great. Sound quality is clear and comfortable and she is not having any issues with the hearing aids at this time. Her only concern was that the left ear mold works its way out of her ear as observed in office. Impression taken of the left ear without incident - Sent to [employer] for a remake. Did not pair to cell phone as Winsome has a [employer] phone. Recommendations: Patient will be contacted when materials have arrived. Diagnosis Code(s):Primary Diagnosis: H90.A22 SNHL, Unilatearl, Left Ear, W/Restricted Contralateral Hearing Secondary Diagnosis: H90.A31 Mixed HL, Unilateral Right Ear, W/Restricted Contralateral Signature: Provider: Charu Figueroa, [facility]
== END 2022-10-19 15:19 | disposition home or self-care (01) ==
LOC: HO.HAP 15:18
PROVIDERS: Visit Provider Internal Medicine
DX: Z13.89 Encounter for screening for other disorder (principal)

== ENCOUNTER 2023-01-05 15:29 | Outpatient (REF) | payer MEDICAID, SELFPAY | END 2023-01-05 15:30 | disposition home or self-care (01) | LOC: HO.HAP 15:29 | PROVIDERS: Visit Provider Internal Medicine | DX: Z13.89 Encounter for screening for other disorder (principal) ==

== ENCOUNTER 2023-06-24 14:17 | Outpatient (REF) | payer MEDICAID, SELFPAY ==
--- NOTE | ~2023-06-24 | MM_ITS ---
EXAMINATION: BONE DENSITOMETRY CLINICAL INDICATION: Follow up osteoporosis. COMPARISON: This is the patient's baseline examination. TECHNIQUE: Using a Planandoo DXA System (software version: 13.1) manufactured by [employer], dual-energy x-ray absorptiometry was performed of the lumbar spine and left hip. The images are of good technical quality. Summary results are attached. FINDINGS: LEFT FEMUR, NECK: BMD 0.926 g/cm2, Z-score 0.5, T-score -0.8, normal. LEFT FEMUR, TOTAL: BMD 1.154 g/cm2, Z-score 2.2, T-score 1.2, normal. AP SPINE L1-L4: BMD 1.243 g/cm2, Z-score 1.9, T-score 0.5, normal. IDENTIFIED RISK FACTORS: Rheumatoid arthritis. HISTORY OF FRACTURE: None listed. MEDICATIONS: Calcium. MM/XR DEXA axial skeleton IMPRESSION: 1. DIAGNOSIS: Normal bone density based on the lowest T-score value of -0.8 in the femoral neck applying World Health Organization criteria. 2. 10-YEAR FRACTURE RISK PREDICTION, FRAX: According to the guidelines, FRAX calculation should only be performed on patients in the osteopenia bone density category. Therefore, FRAX was not performed on this patient.? 3. Treatment Recommendations: NOF guidelines recommend consideration for treatment in postmenopausal women and men age 50 and older presenting with the following: -A hip or vertebral (clinical or morphometric) fracture. -T-score less than or equal to -2.5 at the femoral neck or spine after appropriate evaluation to exclude secondary causes. -Low bone mass at the hip or spine and a 10-year fracture probability by FRAX of greater than or equal to 3% for hip fracture or greater than or equal to 20% for major osteoporotic fracture based on the [place] adapted WHO algorithm. 4. Other Recommendations: All treatment decisions require clinical judgment and consideration of individual patient factors, including patient preferences, comorbidities, previous drug use, risk factors not captured in the FRAX model (e.g. frailty, falls, vitamin D deficiency, increased bone turnover, interval significant decline in bone density) and possible under or overestimation of fracture risk by FRAX. FUTURE SCAN RECOMMENDATION: People with diagnosed cases of osteoporosis or at high risk for fracture should have regular bone mineral density tests. For patients eligible for Medicare, routine testing is allowed once every 2 years. The testing frequency can be increased to one year for patients who have rapidly progressing disease, those who are receiving or discontinuing medical therapy to restore bone mass, or have additional risk factors.
--- NOTE | ~2023-06-24 | MM_ITS ---
EXAMINATION: MM SCREENING DIGITAL BREAST TOMOSYNTHESIS, BILATERAL CLINICAL INFORMATION: Screening. Asymptomatic. COMPARISON: Mammography: 08/21/2021, 08/20/2020, 04/30/2019, 03/15/2018. TECHNIQUE: Digital breast tomosynthesis is performed in both the craniocaudal and mediolateral oblique views along with computer-aided detection (CAD). Synthesized 2D images are generated from the tomosynthesis. FINDINGS: The breasts are almost entirely fatty (ACR BI-RADS breast composition Category a). There are no suspicious masses, suspicious grouped calcifications, or areas of architectural distortion in either breast. The parenchymal pattern is stable from prior exams. No skin or axillary abnormalities. MM/MM tomosynthesis screening BI IMPRESSION: No mammographic evidence of malignancy. ASSESSMENT: BI-RADS BI-RADS 1 - Negative RECOMMENDATION: Routine annual mammography screening. 1 year F/U This examination should not preclude the clinical evaluation of a suspicious palpable abnormality. This patient's information was entered into a reminder system with a target due date for their next mammogram.
== END 2023-06-24 14:18 | disposition home or self-care (01) ==
LOC: HO.MAMMO 14:17
PROVIDERS: PCP Internal Medicine; Visit Provider Internal Medicine
DX: Z12.31 Encounter for screening mammogram for malignant neoplasm of breast (principal); Z13.820 Encounter for screening for osteoporosis; M81.0 Age-related osteoporosis without current pathological fracture; Z78.0 Asymptomatic menopausal state
CPT/HCPCS: 77063; 77067; 77080

== ENCOUNTER → 2023-06-24 14:54 | Outpatient (BNV) | payer MEDICAID, SELFPAY | PROVIDERS: PCP Internal Medicine; Visit Provider Radiology Diagnostic Radiology | DX: Z12.31 Encounter for screening mammogram for malignant neoplasm of breast (principal) | CPT/HCPCS: 77063; 77067 ==

== ENCOUNTER 2023-08-06 09:32 | Outpatient (REF) | payer MEDICAID, SELFPAY ==
[2023-08-06 11:22] LABS: Anion Gap 15 (12-20); Blood Urea Nitrogen 32 mg/dL (9-16); Calcium 10.1 mg/dL (8.4-10.2); Carbon Dioxide 26 mmol/L (22-29); Chloride 106 mmol/L (96-108); Cholesterol 107 mg/dL (<200); Estimated Glomerular Filt Rate > 60; Glucose Random 120 mg/dL (60-115); HDL Cholesterol 25 mg/dL (>40); LDL Cholesterol Calculated 40 mg/dL (<100); Potassium 4.1 mmol/L (3.3-5.1); Sodium 143 mmol/L (135-145); Triglycerides 214 mg/dL (<150)
[2023-08-06 11:39] LABS: Vitamin D 25-OH Total 27.3 ng/mL (>30)
[2023-08-06 12:49] LABS: Reflex LDLD? No
== END 2023-08-06 09:33 | disposition home or self-care (01) ==
LOC: HO.LAB 09:32
PROVIDERS: PCP Internal Medicine; Visit Provider Internal Medicine
DX: R73.01 Impaired fasting glucose (principal); M81.0 Age-related osteoporosis without current pathological fracture
CPT/HCPCS: 36415; 80048; 80061; 82306

== ENCOUNTER 2023-08-17 10:06 | Outpatient (REF) | payer MEDICAID, SELFPAY ==
--- NOTE | ~2023-08-17 | US_ITS ---
EXAMINATION: US ABDOMEN COMPLETE CLINICAL INFORMATION: Right lower quadrant and right flank pain, rule out kidney stones. COMPARISON: None available. TECHNIQUE: Real-time imaging of the abdominal viscera. Limited visualization due to bowel gas. FINDINGS: PANCREAS: Limited visualization of pancreatic tail and head. Imaged portion of pancreatic body is unremarkable. ABDOMINAL AORTA: Limited visualization due to bowel gas. Imaged portions of abdominal aorta are unremarkable. INFERIOR VENA CAVA: Visualized portions are normal. LIVER: Increased hepatic parenchymal heterogeneity and echogenicity could be associated with hepatocellular disease/hepatic steatosis and substantially limits visualization. Correlation with liver function tests and clinical exam recommended to determine further management. GALLBLADDER: No gallbladder wall thickening. Multiple mobile layering gallstones. COMMON BILE DUCT: Normal in caliber measuring 0.4 cm in diameter. RIGHT KIDNEY: No hydronephrosis. Small echogenic focus at the mid pole region likely represents a calcified vessel rather than a nonobstructing calculus. Limited visualization. The kidney measures 10.1 cm in maximum dimension. LEFT KIDNEY: No hydronephrosis. No renal calculi. Limited visualization. The kidney measures 9.7 cm in maximum dimension. SPLEEN: Splenomegaly. A 1.5 x 1.0 x 1.6 cm hypoechoic mass with echogenic wall along the periphery of the mid spleen. The spleen measures 12.5 cm in maximum dimension. FREE FLUID: None. US/US abdomen complete IMPRESSION: 1. Increased hepatic parenchymal heterogeneity and echogenicity could be associated with hepatocellular disease/hepatic steatosis and substantially limits visualization. Correlation with liver function tests and clinical exam recommended to determine further management. 2. Cholelithiasis. 3. Splenomegaly. A 1.6 cm hypoechoic mass with echogenic wall along the periphery of the mid spleen. CT scan recommended for further characterization.
== END 2023-08-17 10:07 | disposition home or self-care (01) ==
LOC: HO.US 10:06
PROVIDERS: PCP Internal Medicine; Visit Provider Internal Medicine
DX: R10.31 Right lower quadrant pain (principal)
CPT/HCPCS: 76700

== ENCOUNTER 2023-12-22 13:30 | Outpatient (REF) | payer MEDICAID, SELFPAY ==
[2023-12-22 15:32] LABS: Free T4 (Free Thyroxine) 0.91 ng/dL (0.71-1.85); Thyroid Stimulating Hormone 1.35 uIU/mL (0.32-4.0)
== END 2023-12-22 13:31 | disposition home or self-care (01) ==
LOC: HO.LAB 13:30
PROVIDERS: PCP Internal Medicine; Visit Provider Student in an Organized Health Care Education/Training Program
DX: E05.00 Thyrotoxicosis with diffuse goiter without thyrotoxic crisis or storm (principal)
CPT/HCPCS: 36415; 84439; 84443; 99212

== ENCOUNTER 2023-12-22 13:30 | Outpatient (AMB) | payer MEDICAID, SELFPAY ==
--- NOTE | 2023-12-22 13:32 | A.OFFVIS_ITS ---
Vital Signs 12/22/23 13:34 Height 4 ft 5 in Weight 142 lb 13.753 oz BMI 35.8 BP 132/74 Blood Pressure Location Lt brachial Position Sitting Pulse 72 Pulse Source Pulse Oximeter Intake Visit Reasons: Grave's Disease Intake Note: Patient present today for Grave's disease follow up visit. Public Relations Analyst Required: Yes Public Relations Analyst Language: [employer]: Public Relations Analyst Present Public Relations Analyst Name: Landry Information Interpreted: non-clinical & clinical Accompanied by: Spouse Allergies No Known Allergies Allergy (Verified 12/22/23 13:36) Medication List - Last Reconciled 12/22/23 by Jael Calderón MD blood sugar diagnostic (FreeStyle Test strips) As directed certolizumab pegol (Cimzia) 200 mg subcut Q2W cetirizine (All Day Allergy (cetirizine)) 10 mg PO DAILY citalopram 10 mg PO DAILY docusate sodium (Colace) 100 mg PO DAILY fluticasone prp-sod.chl,bicarb 50 mcg- 0.9 % sprays intranasal DAILY folic acid 1 mg PO DAILY hydroxyzine HCl 10 mg PO BEDTIME meloxicam 15 mg PO DAILY methotrexate sodium 2.5 mg PO QWEEK metoprolol tartrate 12.5 mg PO BID sertraline 100 mg PO DAILY HPI Comments Details: 63 YO F with PMHx Hyperthyroidism secondary to Graves disease who has been in remission seen for F/U today. here with her today. Used to see Dr. Lma last visit was with 2022. She was diagnosed with Grave's disease in 2015 after she was found to have a suppressed TSH with FT4 and TT3 WNL. Antibodies were assessed, with mild elev ation of TRAB antibodies, but TSI, TPO and TG antibodies WNL. She was started on methimazole, and was on methimazole 2.5 mg 3x per week. Labs were repeated with TSH WNL and negative TSI and TRAB antibodies. She was asked to stop the methimazole and repeat labs.. She stopped the methimazole as of August 2021, and repeat labs October 2021 reveal euthyroidism. She reports feeling well today and has no complaints. She denies any compressive symptoms. She denies any symptoms of hyper or hypothyroidism. Thyroid US: 07/06/2021 Right Thyroid Lobe: 3.4 x 1.2 x 1.0 cm, volume 1.92 mL. Parenchyma: The gland echotexture is homogeneous. Thyroid vascularity is normal. Left Thyroid Lobe: 2.7 x 1.2 x 1.2 cm, volume 2.0 mL. Parenchyma: The gland echotexture is homogeneous. Thyroid vascularity is normal. Isthmus: 0.3 cm in maximum AP dimension. Estimated total number of nodules greater than or equal to 1 cm: 0. Tax Lawyer nodules are described as follows: 1. Location: Isthmus. ?? ? Size: 0.4 x 0.2 x 0.3 cm, volume mL. ?? ? Nodule characteristics: ?? ? Composition: Solid (2). ?? ? Echogenicity: Hypoechoic (2). ?? ? Shape: Not taller than wide (0). ?? ? Margins: Ill-defined (0). ?? ? Echogenic Foci: None (0). ?? ? ACR TI-RADS total points: 4 ?? ? ACR TI-RADS category: 4 2. Location: Right thyroid upper. ?? ? Size: 0.3 x 0.3 x 0.3 cm, volume mL. ?? ? Nodule characteristics: ?? ? Composition: Solid (2). ?? ? Echogenicity: Hypoechoic (2). ?? ? Shape: Not taller than wide (0). ?? ? Margins: Ill-defined (0). ?? ? Echogenic Foci: None (0). ?? ? ACR TI-RADS total points: 4 ?? ? ACR TI-RADS category: 4 3. Location: Right thyroid lower pole. ?? ? Size: 0.6 x 0.3 x 0.5 cm, volume mL. ?? ? Nodule characteristics: ?? ? Composition: Mixed cystic and solid (1). ?? ? Echogenicity: Hypoechoic (2). ?? ? Shape: Not taller than wide (0). ?? ? Margins: Ill-defined (0). ?? ? Echogenic Foci: None (0). ?? ? ACR TI-RADS total points: 3 ?? ? ACR TI-RADS category: 3 4. Location: Right thyroid lower pole. ?? ? Size: 0.5 x 0.3 x 0.4 cm, volume mL. ?? ? Nodule characteristics: ?? ? Composition: Mixed cystic and solid (1). ?? ? Echogenicity: Hypoechoic (2). ?? ? Shape: Not taller than wide (0). ?? ? Margins: Ill-defined (0). ?? ? Echogenic Foci: None (0). ?? ? ACR TI-RADS total points: 3 ?? ? ACR TI-RADS category: 3 5.? Location: Left thyroid upper. ?? ? Size: 0.6 x 0.3 x 0.5 cm, volume mL. ?? ? Nodule characteristics: ?? ? Composition: Solid (2). ?? ? Echogenicity: Hypoechoic (2). ?? ? Shape: Not taller than wide (0). ?? ? Margins: Ill-defined (0). ?? ? Echogenic Foci: None (0). ?? ? ACR TI-RADS total points: 4 ?? ? ACR TI-RADS category: 4 NODES: No lymphadenopathy is seen in the tissue surrounding the thyroid gland. US/US thyroid IMPRESSION: Small thyroid gland. Small bilateral thyroid nodules. ? Thyroid Uptake and Scan: 10/01/2015 FINDINGS: The uptake is 3.4% at 3.4 hours and 24.2% at 24 hours. The radioiodine uptake is normal. The radiopertechnetate thyroid scintigram demonstrates the thyroid gland to be normal in size, shape, and position. There is minimal heterogeneity within the gland, but no definite focal abnormalities are present. The trapping function is moderately increased diffusely. A single radioiodine image obtained at the time of the 24 hour uptake measurement is similar in appearance to the radio pertechnetate images. IMPRESSION: Normal radioiodine uptake and scan, except for diffusely increased trapping function.. In the clinical setting of hyperthyroidism, these findings are consistent with early Graves' disease. No nodules are visualized. Review of systems Constitutional: no fevers, chills or weight loss HEENT: no changes in vision Cardiac: No chest pain, discomfort or palpitations. Pulmonary: No SOB GI:No abdominal pain, no nausea or vomiting, no anorexia, no blood in stool : no burning micturition, dysuria or increase in urinary frequency Physical exam General: sitting comfortably in no acute distress HEENT: normocephalic/atraumatic, moist oral mucosa Neck: supple, symmetrical, no thyromegaly , no dorsocervical or supraclavicular fat pads Cardiac: normal heart sounds Pulm: normal breath sounds B/L, no added breath sounds Abd: not distended, no tenderness Extremities: no edema, no signs of myxedema Neuro: AAO x3, Speech: normal, no facial droop, moving all 4 extremities PFSH Medical History Anxiety Graves disease Postmenopausal bleeding Rheumatoid arthritis Vitamin D deficiency Surgical History No pertinent past surgical history Family History Father Diabetes Hypertension Heart disease Hyperlipidemia Thyroid disease Mother Heart disease Hypertension Thyroid disease Diabetes Social History Household Members: Spouse Housing: Apartment Alcohol intake: never Patient Tobacco Use Status: Never used Tobacco Sexual orientation: Straight/Heterosexual Gender identity: Female Physical Exam Vital Signs: Last Vital Signs Pulse 72 12/22/23 13:34 BP 132/74 12/22/23 13:34 BMI result Body Mass Index 35.8 Assessment & Plan Assessment & Plan (1) Graves disease: Code(s): E05.00 - Thyrotoxicosis with diffuse goiter without thyrotoxic crisis or storm Category: Medical Plan: Patient with a history of Grave's disease. She is off Methimazole since August 2021. She remains in remission. Will repeat labs now to confirm. I will call her with abnormalities. If all WNL she will F/U from here on with her PCP. We have reviewed symptoms of hyperthyroidism such as palpitations, heat intolerance, tremors. She was advised to call me if she begins experiencing any of these. All of her questions were answered. She is in agreement with this plan of care. Plan: -ordered TSH, free T4 Orders: Orders Thyroid Stimulating Hormone Today E05.00 - Thyrotoxicosis with diffuse goiter without thyrotoxic crisis or storm Free T4 (Free Thyroxine) Today E05.00 - Thyrotoxicosis with diffuse goiter without thyrotoxic crisis or storm Coding Level of Care Code Est Pt Level 3 (26739) Diagnoses Graves disease E05.00
[2023-12-22 13:34] VITALS: BP 132/74; PULSE 72; BMI 35.8
== END 2023-12-22 14:23 | disposition home or self-care (01) ==
PROVIDERS: PCP Internal Medicine; Referring Provider Internal Medicine; Visit Provider Student in an Organized Health Care Education/Training Program
DX: E05.00 Thyrotoxicosis with diffuse goiter without thyrotoxic crisis or storm (principal)
CPT/HCPCS: 99213

== ENCOUNTER 2023-12-28 08:28 | Outpatient (REF) | payer MEDICAID, SELFPAY ==
--- NOTE | ~2023-12-28 | CT_ITS ---
EXAMINATION: CT ABDOMEN WITH CONTRAST CLINICAL INFORMATION: Splenic lesion seen on ultrasound, please evaluate. COMPARISON: Ultrasound abdomen 08/17/2023. CT abdomen and pelvis 07/04/2009. TECHNIQUE: Contiguous axial thin section helical images of the abdomen were performed following the administration of oral contrast and 85 mL of Omnipaque 350 intravenous contrast. The data set was reformatted in the coronal and sagittal planes and reviewed on an independent workstation. This CT examination was performed using dose optimization techniques as appropriate, variously including the following: *Automated exposure control *Adjustment of mA and/or kV according to patient size (this includes techniques or standardized protocols for targeted exams where dose is matched to indication/reason for exam; i.e. extremities or head) *Use of iterative reconstruction technique DLP: 341 mGy-cm FINDINGS: LUNG BASES: -Lung bases are clear. There are no effusions. -Heart size is normal. Normal GE junction. LIVER, GALLBLADDER, AND BILIARY TREE: -There is diffuse fatty infiltration of the liver. There is no focal liver masses are focal abnormality. Liver capsule is smooth. No intra or extrahepatic biliary ductal dilatation. -The gallbladder demonstrate numerous peripherally calcified gallstones with layering sludge. No evidence of wall thickening or inflammation. PANCREAS: Normal. SPLEEN: -There is splenomegaly, with AP diameter of the spleen measuring 13.0 x 12.0 cm. This appears similar when compared with 2009. -There is no discrete splenic lesion identified on this examination. Abnormality ultrasound was likely artifact. ADRENAL GLANDS AND KIDNEYS: -Normal adrenal glands. -Mild scarring left kidney inferior pole lateral cortex. Duplicated left renal collecting system. Kidneys otherwise image normally. No masses, calculi, or hydronephrosis. -The ureters are nondilated. BOWEL LOOPS: Normal without focal abnormality. LYMPH NODES: Normal. VASCULAR: Unremarkable. BONES: -No lytic or blastic lesions of the osseous structures. No acute findings. -There is T7-T8 disc degeneration. CT/CT abdomen w IV con IMPRESSION: 1. There is no discrete splenic lesion identified on CT examination. The finding on ultrasound was likely artifact related to capsular lobulation. There is splenomegaly, with the spleen measuring 13.0 cm in AP diameter. 2. Diffuse fatty infiltration of the liver. No focal liver abnormality. 3. Cholelithiasis. 4. Additional ancillary findings as discussed in the body of the report. Fleischner guidelines were followed. Electronically signed by: Benji Matamoros MD 03/02/2024 12:35 PM [facility]
[2023-12-28] MEDS: iohexoL 350 MG/ML 100 ML INFUS..BTL IV (11:10)
[2023-12-28] MEDS: Barium Sulfate Oral (Berry) 450 ML ORAL.SUSP PO (11:11)
[2023-12-29 08:11] LABS: GFR POC > 60
== END 2023-12-28 08:29 | disposition home or self-care (01) ==
LOC: HO.CT 08:28
PROVIDERS: PCP Internal Medicine; Visit Provider Internal Medicine
DX: D73.89 Other diseases of spleen (principal)
CPT/HCPCS: 74160; 82565; Q9967

== ENCOUNTER → 2023-12-28 08:32 | Outpatient (BNV) | payer MEDICAID, SELFPAY | PROVIDERS: PCP Internal Medicine; Visit Provider Radiology Diagnostic Radiology | DX: D73.89 Other diseases of spleen (principal) | CPT/HCPCS: 74160 ==

== ENCOUNTER 2024-08-17 10:31 | Outpatient (REF) | payer MEDICAID, SELFPAY ==
[2024-08-17 12:37] LABS: Alanine Aminotransferase 28 U/L (0-31); Alkaline Phosphatase 54 U/L (39-117); Anion Gap 10 (12-20); Aspartate Amino Transferase 33 U/L (5-31); Bilirubin Total 0.5 mg/dL (0.0-1.0); Blood Urea Nitrogen 20 mg/dL (9-16); Calcium 9.3 mg/dL (8.4-10.2); Carbon Dioxide 30 mmol/L (22-29); Chloride 104 mmol/L (96-108); Cholesterol 96 mg/dL (<200); Estimated Glomerular Filt Rate > 60; Glucose Random 104 mg/dL (60-115); HDL Cholesterol 27 mg/dL (>40); LDL Cholesterol Calculated 49 mg/dL (<100); Potassium 4.4 mmol/L (3.3-5.1); Sodium 140 mmol/L (135-145); Total Protein 8.1 g/dL (6.5-8.0); Triglycerides 100 mg/dL (<150)
[2024-08-17 12:40] LABS: TSH reflex Free T4 1.38 uIU/mL (0.32-4.0)
[2024-08-17 13:58] LABS: Reflex LDLD? No
[2024-08-20 17:03] LABS: TS Negative Control Passed; TS Panel A 0; TS Panel B 0; TS Positive Control Passed; TSpotTB Negative (Negative)
== END 2024-08-17 10:32 | disposition home or self-care (01) ==
LOC: HO.HHCL 10:31
PROVIDERS: Visit Provider Internal Medicine
DX: Z00.00 Encounter for general adult medical examination without abnormal findings (principal); Z11.1 Encounter for screening for respiratory tuberculosis; I10 Essential (primary) hypertension
CPT/HCPCS: 36415; 80053; 80061; 82306; 84443; 86481

== ENCOUNTER 2024-08-31 16:13 | Outpatient (REF) | payer MEDICAID, SELFPAY ==
--- OUTSIDE RECORDS SUMMARY | 2024-08-31 16:16 | XMS_ITS | Encounter Summary ---
Author Organization [employer] Address [address] [place] [address] Care Team Providers Care Gallery Manager Name Role Phone Myriam Moore MD Primary Care Provider + Reason for Visit * Reason Onset Date Comments Med Refill 03/09/2024 Encounter Details Date Type Department Care Team ([facility] st Contact Info) Description 03/09/2024 Telephone [facility] [address] [place] [address] Myriam Moore MD [address] [place] [address] Med Refill Social History Tobacco Use Types Packs/Day Years Used Date Smoking Tobacco: Never Smokeless Tobacco: Never Alcohol Use Standard Drinks/Week Comments Never 0 (1 standard drink = 0.6 oz pur e alcohol) Depression Answer Date Recorded Patient Health Questionnaire-9 Score 0 05/30/2023 Patient Health Questionnaire-9 Score 0 05/30/2023 Last PHQ-9: Questionnaire Data Not on file 0 05/30/2023 Housing Stability Answer Date Recorded What is your housing situation today? I have [place] 05/19/[address] you li ve. Do you have problems with any of the following? None of the above 05/19/2023 Food Insecurity Answer Date Recorded Within the past 12 months, y ou worried that your food would run out before you got money to buy more: Never True 05/19/2023 Within the past 12 months,th e food you bought just didn't last and you didn't have enough money to get more: Never True Transportation Answer Date Recorded In the past 12 months, has l ack of transportation kept you from medical appts, meetings, work or from getting things needed for daily living? No 05/19/2023 Utilities Answer Date Recorded In the past 12 months, has t he electric, gas, oil or water company threatened to shut off services in your home? No 05/19/2023 Depression Answer Date Recorded Patient Health Questionnaire-2 Score 0 05/30/2023 Comments No Sex and Gender Information Value Date Recorded Sex Assigned at Female 02/01/2022 10:19 AM EDT Legal Sex Female 10:19 AM EDT Gender Identity Female 02/01/2022 10:19 AM EDT Sexual Orientation Choose not to disclose 2021 10:19 AM EDT documented as of this encounter Miscellaneous Notes * Telephone Encounter - Rachel Buirtago LPN - 03/09/2024 11:53 AM EST Medication pended to PCP. * Telephone Encounter - Landon Cordova - 03/09/2024 11:46 AM EST TC from pt requesting medication refill. Medications needing refill : metoprolol tartrate (Lopressor) 25 MG tablet To be sent to: [facility]/pharmacy #[id number] documented in this encounter Plan of Treatment Not on file documented as of this encounter Visit Diagnoses Not on filedocumented in this encounter Additional Health Concerns Assessment Noted Time PHQ-9 Depression Total Score: 0 05/30/19 24 2:40 PM EST documented as of this encounter Care Teams Gallery Manager Relationship Specialty Start Date End Date Myriam Moore MD [address] [place] [id number] PCP - General Family Medicine 11/18/16 documented as of this encounter
== END 2024-08-31 16:14 | disposition home or self-care (01) ==
LOC: HO.MAMMO 16:13
PROVIDERS: PCP Internal Medicine; Visit Provider Internal Medicine
DX: Z12.31 Encounter for screening mammogram for malignant neoplasm of breast (principal)
CPT/HCPCS: 77063; 77067

== ENCOUNTER → 2024-08-31 16:15 | Outpatient (BNV) | payer MEDICAID, SELFPAY | PROVIDERS: PCP Internal Medicine; Visit Provider Internal Medicine | DX: Z12.31 Encounter for screening mammogram for malignant neoplasm of breast (principal) | CPT/HCPCS: 77063; 77067 ==